=== PATIENT | female | born 1960 ===

== ENCOUNTER 2019-07-10 19:49 | Emergency (ER) | payer OTHER ==
[~2019-07-10] VITALS: Ht 170.2 cm; Wt 194.1 kg
[2019-07-10 20:03] VITALS: Ht 170.2 cm; Wt 194.1 kg
[2019-07-10] MEDS ORDERED: FERROUS SULFAT325 MG PO (20:04)
[2019-07-10] MEDS ORDERED: OMNICEF300 MG PO (20:04)
[2019-07-10] MEDS ORDERED: VITAMIN D10000 UNI1 PO (20:04)
[2019-07-10] MEDS ORDERED: SYNTHROID125 MCG PO (20:05)
[2019-07-10] MEDS ORDERED: ELIQUIS2.5 MG PO (20:05)
[2019-07-10 20:29] LABS: BASOPHILS 0.3 % (0-2); EOSINOPHILS 1.1 % (0-7); HEMATOCRIT 33.4 % (36.0-48.0); HEMOGLOBIN 8.9 g/dL (12-16); IMMATURE GRANULOCYTES 0.3 % (0-5); LYMPHOCYTES 26.6 % (15-50); MCH 20.6 pg (26.0-34.0); MCHC 26.6 g/dL (31.0-37.0); MCV 77.1 fL (80.0-100.0); MONOCYTES 5.5 % (2-11); NEUTROPHILS 66.2 % (40-80); PLATELET COUNT 284 10x3/uL (130-400); RBC 4.33 10x6/uL (4.00-5.40); RDW 29.1 % (11.5-14.5); WBC 7.4 10x3/uL (4.8-10.8)
[2019-07-10 20:37] LABS: ANION GAP 12.4 mmol/L (8-16); CALCIUM 11.1 mg/dL (8.5-10.1); CARBON DIOXIDE 26.5 mmol/L (21.0-32.0); CREATININE - SERUM 1.1 mg/dL (0.6-1.3); POTASSIUM - SERUM 4.9 mmol/L (3.5-5.1)
[2019-07-10 20:51] LABS: ALBUMIN 3.1 g/dL (3.4-5.0); BILIRUBIN - TOTAL 0.26 mg/dL (0.2-1.3); PROTEIN - SERUM 8.4 g/dL (6.4-8.2)
[2019-07-10 21:06] LABS: CKMB 1.1 U/L (0.0-3.6); CREATINE KINASE 72 UL (21-215)
[2019-07-10 21:10] LABS: TROPONIN-I < 0.017 ng/mL (0.000-0.060)
[2019-07-10] MEDS ORDERED: VIBRAMYCIN 100100 MG PO (21:57)
[2019-07-10] MEDS ORDERED: STERAPRED DS 1010 MG PO (21:57)
[2019-07-10 22:21] VITALS: BP 143/80
== END 2019-07-10 22:13 | disposition home or self-care (01) ==
LOC: D.ER 19:49
PROVIDERS: Family Medicine
DX: J40 Bronchitis, not specified as acute or chronic (principal); Z86.718 Personal history of other venous thrombosis and embolism